=== PATIENT | female | born 1980 | race Caucasian/White ===

== ENCOUNTER 2016-06-03 12:16 | Emergency (ER) | payer MEDICAID, OTHER ==
[~2016-06-03] VITALS: Ht 157.5 cm; Wt 119.7 kg
[~2016-06-03 12:16] MED LIST: TYLENOL #3 300/1 TAB PO; TYLENOL EXTRA500 M1 PO
[2016-06-03 13:05] VITALS: BP 119/78
--- NOTE | 2016-06-03 21:15 | NUR ---
TO ER OF4
--- NOTE | 2016-06-03 21:28 | NUR ---
Patient being evaluated by physician.
[2016-06-03 22:00] VITALS: BP 119/78
--- NOTE | 2016-06-03 22:00 | NUR ---
Patient discharged with v/s stable. Written and verbal after care instructions given and explained. Patient verbalized understanding. Ambulatory with steady gait. All questions addressed prior to discharge. Advised to follow up with PMD.
[2016-07-25] MEDS ORDERED: ZOCOR20 MG PO (15:29)
== END 2016-06-03 22:00 | disposition home or self-care (01) ==
LOC: MED 12:16
DX: R60.0 Localized edema (principal)

== ENCOUNTER 2016-07-25 14:49 | Emergency (ER) | payer OTHER ==
[~2016-07-25] VITALS: Ht 157.5 cm; Wt 116.1 kg
[~2016-07-25 14:49] MED LIST changes: +ACET-7740 PO; +TYL3 PO; -TYLENOL #3 300/1 TAB PO; -TYLENOL EXTRA500 M1 PO
[2016-07-25 15:24] VITALS: BP 143/75
[2016-07-25] MEDS ORDERED: SIMV20TA1 PO (15:29)
--- NOTE | 2016-07-25 15:30 | NUR ---
XR LT. ELBOW ORDERED
--- NOTE | 2016-07-25 15:55 | NUR ---
Patient to bed 08.
--- NOTE | 2016-07-25 16:00 | NUR ---
PT STATES LEFT ELBOW PAIN FOR TWO DAYS. SEEN BY FARAZ TATUM IN TRIAGE. HX: HIGH CHOL. . DENIES N/V/D; SKIN IS PINK/WARM/DRY; AAOX4 WITH EVEN AND STEADY GAIT; LUNGS CLEAR BL; HR EVEN AND REGULAR; PT DENIES ANY FEVER, CP, SOB, OR COUGH AT THIS TIME; PATIENT STATES PAIN OF 7/10 AT THIS TIME; VSS; PATIENT POSITIONED FOR COMFORT; HOB ELEVATED; BEDRAILS UP X2; BED DOWN. ER MD MADE AWARE OF PT STATUS.
[2016-07-25] MEDS ORDERED: traMADol 50 MG TAB PO ONE (16:15)
[2016-07-25] MEDS ORDERED: IBUPROFEN 600 MG TAB PO ONE (16:30)
[2016-07-25 17:18] VITALS: BP 135/70
--- NOTE | 2016-07-25 17:20 | NUR ---
Patient discharged with v/s stable. Written and verbal after care instructions given and explained. Patient alert, oriented and verbalized understanding of instructions. Ambulatory with steady gait. All questions addressed prior to discharge. ID band removed. Patient advised to follow up with PMD. Rx of TRAMADOL HYDROCHLORIDE given. Patient educated on indication of medication including possible reaction and side effects. Opportunity to ask questions provided and answered.
== END 2016-07-25 17:20 | disposition home or self-care (01) ==
LOC: MED 14:49
DX: M25.522 Pain in left elbow (principal)
CPT/HCPCS: 73080; 81002; 81025; 99284

== ENCOUNTER 2017-03-14 02:40 | Emergency (ER) | payer SELFPAY ==
[~2017-03-14] VITALS: Ht 157.5 cm; Wt 117.2 kg
[~2017-03-14 02:40] MED LIST changes: +SIMV20TA1 PO
[2017-03-14 02:53] VITALS: BP 137/80
--- NOTE | 2017-03-14 02:54 | NUR ---
PT RETURNED TO LOBBY
--- NOTE | 2017-03-14 02:56 | NUR ---
PT TAKEN TO BED 2
--- NOTE | 2017-03-14 02:58 | NUR ---
PATIENT IS A 36 Y/O FEMALE WHO PRESENTS TO THE ED C/O THROAT PAIN. PT STATES, "I WOKE UP THIS MORNING AND I COUGHED UP BLOOD AND I GOT SCARED." PT REPORTS NOT BEING ABLE TO SWALLOW PT DENIES PAIN AT THIS TIME. LUNG SOUNDS CLEAR BL, NON-PRODUCTIVE NOTED. PT AAOX4, RR EVEN/UNLABORED. PT REPOSITIONED FOR COMFORT, BED IN LOWEST POSITION. ER MD DR. MARIA NOTIFIED. WILL CONTINUE TO MONITOR.
[2017-03-14 04:19] VITALS: BP 132/85
--- NOTE | 2017-03-14 04:19 | NUR ---
Patient discharged with v/s stable. Written and verbal after care instructions given and explained. Patient alert, oriented and verbalized understanding of instructions. Ambulatory with steady gait. All questions addressed prior to discharge. ID band removed. Patient advised to follow up with PMD. Rx of GUAIFENESIN 100MG/5ML given. Patient educated on indication of medication including possible reaction and side effects. Opportunity to ask questions provided and answered.
== END 2017-03-14 04:19 | disposition home or self-care (01) ==
LOC: MED 02:40
DX: J06.9 Acute upper respiratory infection, unspecified (principal); Z79.899 Other long term (current) drug therapy
CPT/HCPCS: 71045; 81025; 99283; Q0092

== ENCOUNTER 2017-12-02 14:03 | Emergency (ER) | payer SELFPAY ==
[~2017-12-02] VITALS: Ht 170.2 cm; Wt 116.6 kg
[2017-12-02 14:04] VITALS: BP 147/90
--- NOTE | 2017-12-02 14:10 | NUR ---
BIB SELF. C/O FEVER, THROAT PAIN RADIATING TO ABIGAIL EARS, DIFFICULT TO SWALLOW & DIZZINESS SINCE YESTERDAY.DENIES TRAUMA. DENIES N/V/D; SKIN IS PINK/WARM/DRY; AAOX4 WITH EVEN AND STEADY GAIT; LUNGS CLEAR BL; HR EVEN AND REGULAR; PT DENIES ANY FEVER, CP, SOB, OR COUGH AT THIS TIME; PATIENT STATES PAIN OF 7/10 AT THIS TIME; VSS; PATIENT POSITIONED FOR COMFORT; HOB ELEVATED; BEDRAILS UP X2; BED DOWN. ER MD MADE AWARE OF PT STATUS.
--- NOTE | 2017-12-02 14:15 | NUR ---
DR FROST AT BEDSIDE
--- NOTE | 2017-12-02 15:10 | NUR ---
Patient discharged with v/s stable. Written and verbal after care instructions given and explained. Patient alert, oriented and verbalized understanding of instructions. Ambulatory with steady gait. All questions addressed prior to discharge. ID band removed. Patient advised to follow up with PMD. Rx of PENICILLIN, TRAMADOL given. Patient educated on indication of medication including possible reaction and side effects. Opportunity to ask questions provided and answered.
[2017-12-02 15:11] VITALS: BP 147/90
== END 2017-12-02 15:10 | disposition home or self-care (01) ==
LOC: MED 14:03
DX: J03.90 Acute tonsillitis, unspecified (principal); E78.5 Hyperlipidemia, unspecified; Z79.899 Other long term (current) drug therapy
CPT/HCPCS: 87081; 99284

== ENCOUNTER 2019-07-13 16:09 | Emergency (ER) | payer OTHER ==
[~2019-07-13] VITALS: Ht 157.5 cm; Wt 117.9 kg
[~2019-07-13 16:09] MED LIST changes: +ACET-503 PO; -TYL3 PO
[2019-07-13 16:14] VITALS: BP 140/79
--- NOTE | 2019-07-13 17:02 | NUR ---
PT PLACED IN CHAIR A
[2019-07-13] MEDS ORDERED: IBUPROFEN 600 MG TAB PO ONE (17:05)
--- NOTE | 2019-07-13 17:08 | NUR ---
C/O R ANKLE PAIN / S/P FALL DOWN STAIRS AT WORK X TODAY. PT DENIES HITTING HEAD. +CMS TO R ANKLE. TENDER TO TOUCH WITH SLIGHT SWELLING. NO DISLOCATION UPON EXAM. PT STATES SHE HASNT TAKEN ANY MEDICATION FOR THE PAIN. DOES NOT WANT ICE PACK. PT ALERT AND AWAKE. STATES SHE AMBUALTES WITH LIMP. VS STABLE. MED HX: DENIES
--- NOTE | 2019-07-13 17:09 | NUR ---
PT TO XRAY VIA WHEELCHAIR
--- NOTE | 2019-07-13 17:09 | NUR ---
MOTRIN PO ADMINISTERED
--- NOTE | 2019-07-13 17:18 | NUR ---
PT RETURNED FROM XRAY
--- NOTE | 2019-07-13 17:25 | NUR ---
FARAZ DELACRUZ AT CHAIR
--- NOTE | 2019-07-13 17:56 | NUR ---
APPLIED [place] WRAP TO RIGHT ANKLE WITHOUT ANY ISSUES. PT DEMONSTRATED PROPER USE OF CRUTCHES
--- NOTE | 2019-07-13 18:12 | NUR ---
Patient discharged with v/s stable. Written and verbal after care instructions given and explained. Patient alert, oriented and verbalized understanding of instructions. Ambulatory with WITH CRUTCHES. All questions addressed prior to discharge. ID band removed. Patient advised to follow up with PMD. Rx of IBUPROFEN given. Patient educated on indication of medication including possible reaction and side effects. Opportunity to ask questions provided and answered.
[2019-07-13 18:13] VITALS: BP 140/79
== END 2019-07-13 18:12 | disposition home or self-care (01) ==
LOC: MED 16:09
DX: S93.401A Sprain of unspecified ligament of right ankle, initial encounter (principal); W19.XXXA Unspecified fall, initial encounter; Y93.89 Activity, other specified; Y92.59 Other trade areas as the place of occurrence of the external cause; Y99.0 Civilian activity done for income or pay
CPT/HCPCS: 73610; 99283

== ENCOUNTER 2020-03-07 09:45 | Emergency (ER) | payer OTHER ==
[~2020-03-07] VITALS: Ht 160 cm; Wt 122.0 kg
[2020-03-07 09:53] VITALS: BP 158/72
[2020-03-07] MEDS ORDERED: ONDANSETRON 4 MG ODT PO ONE (10:00)
[2020-03-07] MEDS ORDERED: KETOROLAC 30 MG/ML VIAL IM ONE (10:00)
[2020-03-07] MEDS ORDERED: TETRACAINE HCL/PF 0.5% OPTH 4 ML BTL OP ONE (10:00)
[2020-03-07] MEDS ORDERED: TOMOMETER 1 DEV DEV MC ONE (10:02)
[2020-03-07 10:48] VITALS: BP 131/63
== END 2020-03-07 10:48 | disposition home or self-care (01) ==
LOC: MED 09:45
DX: R51.9 Headache, unspecified (principal); H53.9 Unspecified visual disturbance
CPT/HCPCS: 70450; 96372; 99284; J1885; Q0162

== ENCOUNTER 2020-07-06 13:55 | Emergency (ER) | payer OTHER ==
[~2020-07-06] VITALS: Ht 157.5 cm; Wt 78.5 kg
--- NOTE | 2020-07-06 13:59 | NUR ---
PT TAKEN TO BED 4.
[2020-07-06 14:00] VITALS: BP 197/84
--- NOTE | 2020-07-06 14:00 | NUR ---
Patient is a 40 y/o female c/c hypertension x2 days. Patient reports intermittent chest pain that began yesterday; lasts a few seconds; described as "a little shock." Patient also c/c ringing in her ears and blurry vision that started this morning. Patient denies CAMACHO, n/v/d, abdominal pain, blood in stool, jaw pain or shoulder/arm pain. PMH: HTN, HLD RX: HLD medications, unsure what they are called NKA
--- NOTE | 2020-07-06 14:49 | NUR ---
Patient resting comfortably in bed; bed locked and in the lowest position; call light within reach.
--- NOTE | 2020-07-06 15:22 | NUR ---
Dr. Henley at bedside evaluating pt.
[2020-07-06] MEDS ORDERED: LISI40TA12 PO (15:45)
[2020-07-06 15:50] VITALS: BP 197/84
--- NOTE | 2020-07-06 15:51 | NUR ---
Patient discharged with v/s stable. Written and verbal after care instructions given and explained. Patient alert, oriented and verbalized understanding of instructions. Ambulatory with steady gait. All questions addressed prior to discharge. ID band removed. Patient advised to follow up with PMD. Rx of lisinopril given. Patient educated on indication of medication including possible reaction and side effects. Opportunity to ask questions provided and answered.
== END 2020-07-06 15:51 | disposition home or self-care (01) ==
LOC: MED 13:55
DX: I10 Essential (primary) hypertension (principal); H53.8 Other visual disturbances; E78.5 Hyperlipidemia, unspecified; Z79.899 Other long term (current) drug therapy
CPT/HCPCS: 99283

== ENCOUNTER 2020-08-07 19:22 | Emergency (ER) | payer OTHER ==
[~2020-08-07] VITALS: Ht 167.6 cm; Wt 117.9 kg
[~2020-08-07 19:22] MED LIST changes: +LISI40TA12 PO
--- NOTE | 2020-08-07 19:22 | NUR ---
PT DIDI ALS. TAKEN TO BED 7
[2020-08-07 19:25] VITALS: BP 146/75
[2020-08-07 19:53] LABS: BASOPHILS % (AUTO) 0.4 % (0.0-2.0); EOSINOPHILS # (AUTO) 0.3 K/uL (0-0.4); EOSINOPHILS % (AUTO) 2.8 % (0.0-4.0); HEMATOCRIT 36.3 % (36-48); HEMOGLOBIN 12.4 g/dL (12.0-16.0); LYMPHOCYTES # (AUTO) 2.7 K/uL (2.5-16.5); LYMPHOCYTES % (AUTO) 26.5 % (20.5-51.1); MEAN CORPUSCULAR HEMOGLOBIN 30 pg (27-31); MEAN CORPUSCULAR HGB CONC 34 g/dL (33-37); MEAN CORPUSCULAR VOLUME 87.2 fL (80-94); MONOCYTES # (AUTO) 0.6 K/uL (0.8-1.0); MONOCYTES % (AUTO) 6.3 % (1.7-9.3); NEUTROPHILS # (AUTO) 6.4 K/uL (1.8-7.7); PLATELET COUNT (AUTO) 267 K/uL (140-450); RED BLOOD CELL COUNT(AUTO) 4.16 MIL/uL (4.20-5.40); RED CELL DISTRIBUTION WIDTH 13.9 % (11.6-13.7); WHITE BLOOD COUNT (AUTO) 10.1 K/uL (4.8-10.8)
[2020-08-07 20:12] LABS: ALBUMIN 3.4 g/dL (3.4-5.0); ANION GAP 13.1 (8-16); CARBON DIOXIDE 23.8 mmol/L (21-32); CREATININE 0.8 mg/dL (0.6-1.3); POTASSIUM 3.9 mmol/L (3.5-5.1); TOTAL BILIRUBIN 0.3 mg/dL (0.0-1.0)
--- NOTE | 2020-08-07 20:59 | NUR ---
Dr. Fermin examining patient.
--- NOTE | 2020-08-07 21:01 | NUR ---
PT AMBULATED TO RESTROOM W/ STEADY GAIT.
[2020-08-07 22:38] LABS: PROTHROMBIN TIME 9.6 secs (10.8-13.4)
--- NOTE | 2020-08-07 23:25 | NUR ---
Patient resting in bed, eyes closed, hob slightly elevated. Breathing even and unlabored. NAD noted, will continue to monitor.
--- NOTE | 2020-08-07 23:45 | NUR ---
Patient's respiratory re-assessed at 19RR. Breathing even and unlabored, patient speaking in full sentences. NAD
[2020-08-07 23:50] VITALS: BP 136/61
== END 2020-08-07 23:50 | disposition home or self-care (01) ==
LOC: MED 19:22
DX: R07.9 Chest pain, unspecified (principal); I10 Essential (primary) hypertension; E78.5 Hyperlipidemia, unspecified; Z79.899 Other long term (current) drug therapy
CPT/HCPCS: 36415; 71045; 80053; 83880; 84484; 85025; 85379; 85610; 85730; 93005; 99285

== ENCOUNTER 2021-05-03 10:32 | Emergency (ER) | payer OTHER ==
[~2021-05-03] VITALS: Ht 157.5 cm; Wt 123.8 kg
[2021-05-03 10:34] VITALS: BP 147/91
--- NOTE | 2021-05-03 10:40 | NUR ---
41 Y/O F AMBULED TO BED 3 WITH STEADY GAIT, C/O ABD WITH NVD X1 WEEK. PAIN IS WORSE WHEN SHE EATS. KNDA PMH: HTN, HLD
--- NOTE | 2021-05-03 10:41 | NUR ---
PT AMBULATED TO ER BED 3 WITH A STEADY GAIT.
--- NOTE | 2021-05-03 10:57 | NUR ---
DR HENDRIX AT BEDSIDE FOR MSE
--- NOTE | 2021-05-03 11:07 | NUR ---
LAB AT BEDSIDE TO DRAW BLOOD WORK
--- NOTE | 2021-05-03 11:12 | NUR ---
US AT BEDSIDE FOR US
[2021-05-03 11:25] LABS: BASOPHILS # (AUTO) 0.1 K/uL (0.00-0.22); BASOPHILS % (AUTO) 0.6 % (0.0-2.0); EOSINOPHILS # (AUTO) 0.1 K/uL (0-0.4); EOSINOPHILS % (AUTO) 1.1 % (0.0-4.0); HEMATOCRIT 38.6 % (36-48); HEMOGLOBIN 12.8 g/dL (12.0-16.0); LYMPHOCYTES # (AUTO) 2.1 K/uL (2.5-16.5); LYMPHOCYTES % (AUTO) 15.1 % (20.5-51.1); MEAN CORPUSCULAR HEMOGLOBIN 28 pg (27-31); MEAN CORPUSCULAR HGB CONC 33 g/dL (33-37); MEAN CORPUSCULAR VOLUME 85.8 fL (80-94); MONOCYTES # (AUTO) 0.9 K/uL (0.8-1.0); MONOCYTES % (AUTO) 6.5 % (1.7-9.3); NEUTROPHILS # (AUTO) 10.5 K/uL (1.8-7.7); NEUTROPHILS % (AUTO) 76.7 % (42.2-75.2); PLATELET COUNT (AUTO) 281 K/uL (140-450); RED CELL DISTRIBUTION WIDTH 13.6 % (11.6-13.7); WHITE BLOOD COUNT (AUTO) 13.6 K/uL (4.8-10.8)
--- NOTE | 2021-05-03 11:42 | NUR ---
US DONE WITH BEDSIDE GALLBLADER US AT THIS TIME
[2021-05-03 11:51] LABS: ALBUMIN 3.3 g/dL (3.4-5.0); ANION GAP 13.8 (8-16); CARBON DIOXIDE 26.9 mmol/L (21-32); CREATININE 0.7 mg/dL (0.6-1.3); POTASSIUM 3.7 mmol/L (3.5-5.1); TOTAL BILIRUBIN 0.3 mg/dL (0.0-1.0)
--- NOTE | 2021-05-03 11:53 | NUR ---
PT AMBULATED WITH STEADY GAIT TO RESTROOM, URINE SAMPLE PROVIDED AT THIS TIME
[2021-05-03] MEDS ORDERED: ONDA-188 PO (13:13)
[2021-05-03] MEDS ORDERED: FAMO-90 PO (13:13)
[2021-05-03 13:18] VITALS: BP 157/84
--- NOTE | 2021-05-03 13:18 | NUR ---
Patient discharged with v/s stable. Written and verbal after care instructions given and explained. Patient alert, oriented and verbalized understanding of instructions. Ambulatory with steady gait. All questions addressed prior to discharge. ID band removed. Patient advised to follow up with PMD. Rx of PEPCID, ZOFRAN, given. Patient educated on indication of medication including possible reaction and side effects. Opportunity to ask questions provided and answered.
== END 2021-05-03 13:18 | disposition home or self-care (01) ==
LOC: MED 10:32
DX: R10.10 Upper abdominal pain, unspecified (principal); R11.0 Nausea; I10 Essential (primary) hypertension; E78.5 Hyperlipidemia, unspecified; Z79.899 Other long term (current) drug therapy
CPT/HCPCS: 36415; 76705; 80053; 81002; 81025; 83690; 85025; 99284; Q0092

== ENCOUNTER 2021-07-26 19:17 | Emergency (ER) | payer OTHER ==
[~2021-07-26] VITALS: Ht 157.5 cm; Wt 117.9 kg
[~2021-07-26 19:17] MED LIST changes: +FAMO-90 PO; +ONDA-188 PO
[2021-07-26 19:21] VITALS: BP 145/91
--- NOTE | 2021-07-26 19:31 | NUR ---
TO BR FOR UA, THEN TO BED
--- NOTE | 2021-07-26 19:51 | NUR ---
Dr. Henley examining patient.
[2021-07-26] MEDS ORDERED: MORPHINE SULFATE 4 MG/ML SYR IM ONE (19:55)
[2021-07-26 20:09] LABS: BASOPHILS # (AUTO) 0.1 K/uL (0.00-0.22); BASOPHILS % (AUTO) 0.9 % (0.0-2.0); EOSINOPHILS # (AUTO) 0.2 K/uL (0-0.4); HEMATOCRIT 39.8 % (36-48); HEMOGLOBIN 13.6 g/dL (12.0-16.0); LYMPHOCYTES # (AUTO) 2.7 K/uL (2.5-16.5); LYMPHOCYTES % (AUTO) 27.8 % (20.5-51.1); MEAN CORPUSCULAR HEMOGLOBIN 29 pg (27-31); MEAN CORPUSCULAR HGB CONC 34 g/dL (33-37); MEAN CORPUSCULAR VOLUME 85.1 fL (80-94); MONOCYTES # (AUTO) 0.6 K/uL (0.8-1.0); MONOCYTES % (AUTO) 6.4 % (1.7-9.3); NEUTROPHILS % (AUTO) 62.9 % (42.2-75.2); PLATELET COUNT (AUTO) 303 K/uL (140-450); RED BLOOD CELL COUNT(AUTO) 4.68 MIL/uL (4.20-5.40); WHITE BLOOD COUNT (AUTO) 9.6 K/uL (4.8-10.8)
--- NOTE | 2021-07-26 20:10 | NUR ---
41 Y/O F BIB SELF FOR ABD PAIN SINCE FRIDAY. PPT STATES IT IS PROVOKED BY EATING/ DRINKING. PAIN COMES AND GOES AND FEELS SHARP AND RADIATES TO BACK. PT STATES NASUSEA WHEN HAVING PAIN . DENIES V/D; SKIN IS PINK/WARM/DRY; AAOX4 WITH EVEN AND STEADY GAIT; PT DENIES ANY FEVER, CP, SOB, OR COUGH AT THIS TIME; PATIENT STATES PAIN OF 10/10 AT THIS TIME; VSS; PATIENT POSITIONED FOR COMFORT; HOB ELEVATED; PMH: HTN, HIGH CHOLESTEROL MEDS: LISINOPRIL, LOVARSTATIN. LAST LMP: 06/24/21 LBM : THIS MORNING.
[2021-07-26 21:10] LABS: ALBUMIN 3.6 g/dL (3.4-5.0); ANION GAP 12.2 (8-16); CARBON DIOXIDE 29.6 mmol/L (21-32); CREATININE 0.9 mg/dL (0.6-1.3); POTASSIUM 3.8 mmol/L (3.5-5.1); TOTAL BILIRUBIN 0.4 mg/dL (0.0-1.0)
--- NOTE | 2021-07-26 22:17 | NUR ---
Ultrasound at bedside.
--- NOTE | 2021-07-26 23:14 | NUR ---
Dr. Ferreira examining patient.
--- NOTE | 2021-07-26 23:30 | NUR ---
Justine talley in [facility] - 07/26/21 at 2331 by ANTHONY PT RETURN FROM XRAY
--- NOTE | 2021-07-26 23:31 | NUR ---
PT RETURN FROM RADIOLOGY
[2021-07-27 00:14] LABS: APPEARANCE,URINE CLEAR (CLEAR); BILIRUBIN,URINE NEGATIVE (NEGATIVE); BLOOD, URINE 2+ (NEGATIVE); COLOR,URINE YELLOW (YELLOW); LEUKOCYTE ESTERASE ,URINE NEGATIVE (NEGATIVE); NITRITE, URINE NEGATIVE (NEGATIVE); PH,URINE 5.5 (5.0-9.0); UGLUCOSE 1+ (NEGATIVE)
[2021-07-27 00:26] LABS: RBC,URINE 0-5 /HPF (0-5); WBC,URINE 0-5 /HPF (0-5)
--- NOTE | 2021-07-27 04:11 | NUR ---
Patient appears to be resting comfortably in bed. Vital Signs within normal limits. Respirations even and unlabored. pt becoming inpatient with ct results
[2021-07-27] MEDS ORDERED: BEN10 PO (05:07)
[2021-07-27] MEDS ORDERED: MAG-27 PO (05:07)
[2021-07-27 05:21] VITALS: BP 130/54
--- NOTE | 2021-07-27 05:21 | NUR ---
Patient discharged with v/s stable. Written and verbal after care instructions given and explained. Patient alert, oriented and verbalized understanding of instructions. Ambulatory with steady gait. All questions addressed prior to discharge. ID band removed. Patient advised to follow up with PMD. Rx of bentyl/ mylanta given. Opportunity to ask questions provided and answered.
--- NOTE | 2021-07-27 06:31 | NUR ---
The patient's care was reviewed and supervised by Paty Masters RN.
== END 2021-07-27 05:21 | disposition home or self-care (01) ==
LOC: MED 19:17
DX: R10.13 Epigastric pain (principal); I10 Essential (primary) hypertension; Z79.899 Other long term (current) drug therapy
CPT/HCPCS: 36415; 74176; 76705; 80053; 81001; 81025; 83690; 85025; 87086; 96372; 99285; J2270; Q0092; 81002

== ENCOUNTER 2021-11-07 15:12 | Emergency (ER) | payer OTHER ==
[~2021-11-07] VITALS: Ht 149.9 cm; Wt 119.3 kg
[~2021-11-07 15:12] MED LIST changes: +BEN10 PO; +MAG-27 PO; +SIMV-372 PO; -SIMV20TA1 PO
[2021-11-07 15:27] VITALS: BP 144/69
--- NOTE | 2021-11-07 15:33 | NUR ---
PT AMBULATED TO BED 11.
[2021-11-07] MEDS ORDERED: ONDANSETRON 4 MG ODT PO ONE (16:25)
[2021-11-07] MEDS ORDERED: MECLIZINE 25 MG TAB PO ONE (16:25)
[2021-11-07 16:47] LABS: BASOPHILS # (AUTO) 0.1 K/uL (0.00-0.22); BASOPHILS % (AUTO) 0.6 % (0.0-2.0); EOSINOPHILS # (AUTO) 0.2 K/uL (0-0.4); EOSINOPHILS % (AUTO) 1.7 % (0.0-4.0); HEMATOCRIT 41.9 % (36-48); HEMOGLOBIN 13.9 g/dL (12.0-16.0); LYMPHOCYTES # (AUTO) 2.1 K/uL (2.5-16.5); LYMPHOCYTES % (AUTO) 15.5 % (20.5-51.1); MEAN CORPUSCULAR HEMOGLOBIN 28 pg (27-31); MEAN CORPUSCULAR HGB CONC 33 g/dL (33-37); MEAN CORPUSCULAR VOLUME 85.5 fL (80-94); MONOCYTES # (AUTO) 0.9 K/uL (0.8-1.0); MONOCYTES % (AUTO) 6.6 % (1.7-9.3); NEUTROPHILS # (AUTO) 10.2 K/uL (1.8-7.7); NEUTROPHILS % (AUTO) 75.6 % (42.2-75.2); PLATELET COUNT (AUTO) 319 K/uL (140-450); RED CELL DISTRIBUTION WIDTH 13.9 % (11.6-13.7); WHITE BLOOD COUNT (AUTO) 13.4 K/uL (4.8-10.8)
[2021-11-07 17:09] LABS: ALBUMIN 3.7 g/dL (3.4-5.0); ANION GAP 11.7 (8-16); ASPARTATE AMINOTRANSFERASE 32 U/L (15-37); CARBON DIOXIDE 28.3 mmol/L (21-32); CHLORIDE 99 mmol/L (98-107); CREATININE 0.7 mg/dL (0.6-1.3); GFR ARICAN-AMERICAN 117 mL/min (>90); GLUCOSE 117 mg/dL (74-106); SODIUM SERUM 135 mmol/L (136-145); TOTAL BILIRUBIN 0.4 mg/dL (0.0-1.0); UREA NITROGEN, BLOOD 15 mg/dL (7-18)
[2021-11-07] MEDS ORDERED: MECL-303 PO (20:02)
[2021-11-07] MEDS ORDERED: ONDA-188 PO (20:03)
--- NOTE | 2021-11-07 20:13 | NUR ---
Patient discharged with v/s stable. Written and verbal after care instructions given and explained. Patient alert, oriented and verbalized understanding of instructions. Ambulatory with steady gait. All questions addressed prior to discharge. ID band removed. Patient advised to follow up with PMD. Rx of MECLIZINE AND ZOFRAN given. Patient educated on indication of medication including possible reaction and side effects. Opportunity to ask questions provided and answered.
== END 2021-11-07 20:13 | disposition home or self-care (01) ==
LOC: MED 15:12
DX: R07.9 Chest pain, unspecified (principal); H81.392 Other peripheral vertigo, left ear; I10 Essential (primary) hypertension; E78.5 Hyperlipidemia, unspecified; Z79.899 Other long term (current) drug therapy
CPT/HCPCS: 36415; 71045; 80053; 84484; 85025; 93005; 99285; J8597; Q0162

== ENCOUNTER 2022-05-12 20:49 | Emergency (ER) | payer OTHER ==
[~2022-05-12] VITALS: Ht 157.5 cm; Wt 117.9 kg
[~2022-05-12 20:49] MED LIST changes: +MECL-303 PO
[2022-05-12 20:50] VITALS: BP 149/79
--- NOTE | 2022-05-12 20:53 | NUR ---
TO LOBBY A/W BED AMBULATORY
--- NOTE | 2022-05-12 23:10 | NUR ---
Dr. Mauro examining patient.
[2022-05-13 00:23] LABS: ALBUMIN 3.7 g/dL (3.4-5.0); ANION GAP 13.6 (8-16); CARBON DIOXIDE 28.7 mmol/L (21-32); CREATININE 0.7 mg/dL (0.6-1.3); POTASSIUM 4.3 mmol/L (3.5-5.1); TOTAL BILIRUBIN 0.4 mg/dL (0.0-1.0)
[2022-05-13 01:28] LABS: BASOPHILS # (AUTO) 0.1 K/uL (0.00-0.22); BASOPHILS % (AUTO) 0.6 % (0.0-2.0); EOSINOPHILS # (AUTO) 0.3 K/uL (0-0.4); EOSINOPHILS % (AUTO) 2.4 % (0.0-4.0); HEMATOCRIT 40.9 % (36-48); LYMPHOCYTES # (AUTO) 3.7 K/uL (2.5-16.5); LYMPHOCYTES % (AUTO) 28.3 % (20.5-51.1); MEAN CORPUSCULAR HEMOGLOBIN 30 pg (27-31); MEAN CORPUSCULAR HGB CONC 34 g/dL (33-37); MEAN CORPUSCULAR VOLUME 87.2 fL (80-94); MONOCYTES # (AUTO) 0.9 K/uL (0.8-1.0); NEUTROPHILS % (AUTO) 61.7 % (42.2-75.2); PLATELET COUNT (AUTO) 305 K/uL (140-450); RED BLOOD CELL COUNT(AUTO) 4.68 MIL/uL (4.20-5.40); RED CELL DISTRIBUTION WIDTH 13.9 % (11.6-13.7); WHITE BLOOD COUNT (AUTO) 12.9 K/uL (4.8-10.8)
[2022-05-13 01:45] VITALS: BP 142/76
[2022-05-13 02:14] LABS: APPEARANCE,URINE CLEAR (CLEAR); BILIRUBIN,URINE NEGATIVE (NEGATIVE); BLOOD, URINE 2+ (NEGATIVE); COLOR,URINE YELLOW (YELLOW); LEUKOCYTE ESTERASE ,URINE NEGATIVE (NEGATIVE); NITRITE, URINE NEGATIVE (NEGATIVE); UGLUCOSE 2+ (NEGATIVE)
[2022-05-13 02:29] LABS: RBC,URINE 0-5 /HPF (0-5); WBC,URINE 0-5 /HPF (0-5)
== END 2022-05-13 01:45 | disposition home or self-care (01) ==
LOC: MED 20:49
DX: R73.9 Hyperglycemia, unspecified (principal); I10 Essential (primary) hypertension; Z79.899 Other long term (current) drug therapy
CPT/HCPCS: 36415; 80053; 81001; 85025; 87086; 99283

== ENCOUNTER 2022-09-05 11:43 | Emergency (ER) | payer OTHER ==
[~2022-09-05] VITALS: Ht 157.5 cm; Wt 119.3 kg
[2022-09-05 12:09] VITALS: BP 154/78; PULSE 78; RESP 20; TEMP 97.5; O2SAT 98
[2022-09-05] MEDS ORDERED: KETOROLAC 30 MG/ML VIAL IM SCH (13:35)
[2022-09-05] MEDS ORDERED: IBUP-2218 PO (15:14)
[2022-09-05] MEDS ORDERED: MECL-303 PO (15:14)
--- NOTE | 2022-09-05 15:35 | NUR ---
PT SWABBED FOR STREP, SAMPLES SENT TO LAB
[2022-09-05 15:37] VITALS: BP 154/78; PULSE 78; RESP 20; TEMP 97.5; O2SAT 98
--- NOTE | 2022-09-05 15:37 | NUR ---
Patient discharged with v/s stable. Written and verbal after care instructions given and explained. Patient alert, oriented and verbalized understanding of instructions. Ambulatory with steady gait. All questions addressed prior to discharge. ID band removed. Patient advised to follow up with PMD. Rx of IBUPROFEN, ANTIVERT (SENT) given. Patient educated on indication of medication including possible reaction and side effects. Opportunity to ask questions provided and answered.
== END 2022-09-05 15:37 | disposition home or self-care (01) ==
LOC: MED 11:43
DX: H81.10 Benign paroxysmal vertigo, unspecified ear (principal); R68.84 Jaw pain; I10 Essential (primary) hypertension; Z79.899 Other long term (current) drug therapy; Z79.1 Long term (current) use of non-steroidal anti-inflammatories (NSAID)
CPT/HCPCS: 87081; 99284

== ENCOUNTER 2023-05-14 11:02 | Emergency (ER) | payer OTHER ==
[~2023-05-14] VITALS: Ht 157.5 cm; Wt 117.9 kg
[~2023-05-14 11:02] MED LIST changes: +IBUP-2218 PO
[2023-05-14 11:13] VITALS: BP 157/85; PULSE 75; TEMP 98.2; O2SAT 99
[2023-05-14] MEDS: LIDOCAINE MPF 1% 10 MG/ML VIAL INJ ONE (12:37)
[2023-05-14] MEDS ORDERED: CEPH-588 PO (12:54)
== END 2023-05-14 13:02 | disposition home or self-care (01) ==
LOC: MED 11:02
DX: S61.411A Laceration without foreign body of right hand, initial encounter (principal); I10 Essential (primary) hypertension; E11.9 Type 2 diabetes mellitus without complications; Z79.1 Long term (current) use of non-steroidal anti-inflammatories (NSAID); Z79.899 Other long term (current) drug therapy; W26.2XXA Contact with edge of stiff paper, initial encounter; Y93.89 Activity, other specified; Y92.098 Other place in other non-institutional residence as the place of occurrence of the external cause; Y99.8 Other external cause status
CPT/HCPCS: 12001; 82948; 90471; 90715; 99283; J2001; 99282

== ENCOUNTER 2023-10-21 15:09 | Emergency (ER) | payer OTHER ==
[~2023-10-21] VITALS: Ht 157.5 cm; Wt 115.2 kg
[~2023-10-21 15:09] MED LIST changes: +CEPH-588 PO
[2023-10-21 15:39] VITALS: BP 154/85; PULSE 95; RESP 22; TEMP 98.4; O2SAT 99
[2023-10-21] MEDS ORDERED: EPINEPHrine 1 MG/ML AMP ONE (16:44)
[2023-10-21] MEDS: ACETAMINOPHEN EXTRA STRENGTH 500 MG TAB PO ONE (17:53)
[2023-10-21] MEDS: LIDOCAINE 5% 1 EA PATCH TP ONE (17:53)
[2023-10-21] MEDS ORDERED: LID5T TP (18:00)
[2023-10-21] MEDS ORDERED: METH-1681 PO (18:00)
[2023-10-21] MEDS ORDERED: ACET500T99 PO (18:00)
[2023-10-21 18:05] VITALS: BP 154/85; PULSE 95; RESP 22; TEMP 98.4; O2SAT 99
== END 2023-10-21 18:05 | disposition home or self-care (01) ==
LOC: MED 15:09
DX: S13.4XXA Sprain of ligaments of cervical spine, initial encounter (principal); S43.402A Unspecified sprain of left shoulder joint, initial encounter; S50.02XA Contusion of left elbow, initial encounter; S60.222A Contusion of left hand, initial encounter; E11.9 Type 2 diabetes mellitus without complications; I10 Essential (primary) hypertension; Z79.899 Other long term (current) drug therapy; V89.2XXA Person injured in unspecified motor-vehicle accident, traffic, initial encounter; Y93.89 Activity, other specified; Y92.410 Unspecified street and highway as the place of occurrence of the external cause; Y99.8 Other external cause status
CPT/HCPCS: 73030; 73080; 73130; 99284; J0171